=== PATIENT | female | born 2000 | race Caucasian/White ===

== ENCOUNTER 2025-01-17 16:48 | Emergency (ER) | payer OTHER, SELFPAY ==
[2025-01-17 17:46] VITALS: BP 139/75; PULSE 86; RESP 16; TEMP 37.1; O2SAT 98; BMI 36.6
[2025-01-17 18:13] LABS: Add Manual Diff / Slide Review NO; Basophils Absolute Auto 100 /uL (0-100); Basophils Percent Auto 1.1 % (0-2); Eosinophils Absolute Auto 200 /uL (0-450); Eosinophils Percent Auto 2.1 % (2-4); Hematocrit 39.5 % (36-46); Hemoglobin 13.6 g/dL (12.0-16.0); Lymphocytes Absolute Auto 2900 /uL (1100-4500); Lymphocytes Percent Auto 28.7 % (25-40); Mean Corpuscular HGB Conc 34.4 % (30-36); Mean Corpuscular Hemoglobin 30.9 PG (26-34); Mean Corpuscular Volume 89.7 fL (80-100); Monocytes Absolute Auto 600 /uL (0-900); Monocytes Percent Auto 5.9 % (3-14); Neutrophils Absolute Auto 6200 /uL (1500-7000); Neutrophils Percent Auto 62.2 % (50-75); Platelet Count 329 X10^3/uL (150-400); Red Cell Distribution Width 13.1 % (11.6-14.8)
[2025-01-17 18:17] LABS: RBC Urine None Seen (0-5/HPF); Urine Volume 10mL (spun); WBC Urine 0-1/HPF (0-5/HPF)
[2025-01-17 18:18] LABS: Bacteria Urine Occasional (0-1); Culture Indicated Urine Cult Not Indicated; Squamous Epithelial Cell Urine 1-5 /HPF (0-5/HPF)
[2025-01-17 18:22] LABS: Alanine Aminotransferase 25 IU/L (<35); Albumin 4.8 g/dL (3.5-5.0); Albumin Globulin Ratio 1.3 (1.0-2.8); Alkaline Phosphatase 37 U/L (38-126); Aspartate Aminotransferase 34 IU/L (14-36); BUN Creatinine Ratio 29.1 (6-22); Blood Urea Nitrogen 16 mg/dL (7-17); Calcium 9.3 mg/dL (8.4-10.2); Carbon Dioxide 23 mmol/L (22-32); Chloride 102 mmol/L (98-107); Estimated Glomerular Filt Rate > 60 mL/min (>60); Globulin 3.6 g/dL (1.7-4.1); Glucose 82 mg/dL (70-99); Lipase 67 U/L (23-300); Potassium 4.4 mmol/L (3.4-5.1); Sodium 137 mmol/L (137-145); Total Protein 8.4 g/dL (6.3-8.2)
[2025-01-17 18:26] LABS: HEMOLYSIS 89 (0-50)
[2025-01-17] MEDS: ACETAMINOPHEN 325 MG TABLET 650 MG PO (22:05)
[2025-01-17] MEDS: ONDANSETRON 4 MG/2 ML INJ IV (22:05)
[2025-01-17] MEDS: SODIUM CHLORIDE 0.9% 1,000 ML 1000 ML IV (22:06)
--- NOTE | 2025-01-17 22:11 | ED.ABDPAIN ---
HPI - Abdominal Pain General Chief Complaint: Abdominal Pain Stated Complaint: stomach pain dizzy Time Seen by Provider: 01/17/25 22:07 Source: patient Mode of arrival: Ambulatory History of Present Illness HPI narrative: 24-year-old female status post cholecystectomy January 2024, had ongoing abdominal pain, breath testing positive for H pylori May 2024, had course of antibiotics and antacids, intermittently having epigastric area discomfort, recently seen alternate ER that she can not name, had CT abdomen and pelvis that showed no acute changes. Currently taking famotidine, no other antacid regimen, as epigastric area discomfort intermittently. No black or red stools. No nausea or vomiting. No trauma injury. No cough chest pain shortness of breath. MD complaint: abdominal pain Related Data Previous Rx's ?Medication ?Instructions ?Recorded omeprazole 20 mg capsule,delayed 20 mg PO DAILY upper abdominal 01/17/25 release pain 30 days #30 caps Allergies Allergy/AdvReac Type Severity Reaction Status Date / Time No Known Drug Allergies Allergy Verified 01/17/25 17:46 Patient History Social History Smoking Status: Never smoker Smoking Status: Never smoker Exam Narrative Exam Narrative: GENERAL: Well-developed patient, in mild distress. HEAD: Atraumatic. Normocephalic. EYES: Pupils equal round and reactive. Extraocular motions intact. No scleral icterus. No injection or drainage. ENT: Nose without bleeding, purulent drainage. Throat without erythema, tonsillar hypertrophy or exudate. Airway patent. NECK: Trachea midline. Non tender CARDIOVASCULAR: Regular rate and rhythm without murmurs, gallops, or rubs. RESPIRATORY: Clear to auscultation. Breath sounds equal bilaterally. No wheezes, rales, or rhonchi. GASTROINTESTINAL: Abdomen soft, non-tender, nondistended. EXTREMITIES: No edema or joint tenderness. BACK: Nontender without deformity or crepitance. No flank tenderness. NEURO: AOx3. Motor functions grossly nonfocal SKIN: No rash or erythema of visible areas Initial Vital Signs Initial Vital Signs: Vital Signs Temperature 98.7 F 01/17/25 17:46 Pulse Rate 86 01/17/25 17:46 Respiratory Rate 16 01/17/25 17:46 Blood Pressure 139/75 01/17/25 17:46 Pulse Oximetry 98 01/17/25 17:46 Oxygen Delivery Method Room Air 01/17/25 17:46 Course Orders Ordered: ED Orders 01/17/25 17:52 EKG-12 Lead Stat 01/17/25 17:56 Complete Blood Count AUTO DIFF Stat Comprehensive Metabolic Panel Stat Lipase Stat Urine Microscopic Stat Discontinued Medications Acetaminophen (Acetaminophen 325 Mg Tablet) 650 mg PO NOW ONE Stop: 01/17/25 21:48 Last Admin: 01/17/25 22:05 Dose: 650 mg Documented By: FABIENNE Al Hydrox/Mg Hydrox/Simethicone (Mag Hydrox/Alum/Simeth 30 Ml Udc) 30 ml PO NOW ONE Stop: 01/17/25 22:09 Last Admin: 01/17/25 22:14 Dose: 30 ml Documented By: FABIENNE Sodium Chloride (Normal Saline 0.9%) 1,000 mls @ 1,000 mls/hr IV BOLUS ONE Stop: 01/17/25 22:46 Last Admin: 01/17/25 22:06 Dose: 1,000 mls/hr Documented By: FABIENNE Ondansetron HCl (Ondansetron 4 Mg/2 Ml Inj) 4 mg IV NOW PRN PRN Reason: Nausea And Vomiting Last Admin: 01/17/25 22:05 Dose: 4 mg Documented By: FABIENNE Ondansetron HCl (Ondansetron 4 Mg Odt) 4 mg PO NOW PRN PRN Reason: Nausea And Vomiting Pantoprazole Sodium (Pantoprazole 40 Mg Vial) 40 mg IV NOW ONE Stop: 01/17/25 22:09 Last Admin: 01/17/25 22:14 Dose: 40 mg Documented By: FABIENNE Vital Signs Vital signs: Vital Signs - 8 hr 01/17/25 23:12 Pulse Rate 68 Respiratory Rate 15 Blood Pressure 108/59 L Pulse Oximetry 100 Oxygen Delivery Method Room Air MDM - Abdominal Pain Lab Data Attestation: I reviewed the patient's lab results. Lab results narrative: White blood cell count 18369, hemoglobin 13.6, platelets adequate. Glucose 82. Normal renal function. Normal electrolytes and carbon dioxide. Liver functions and lipase normal. Urine negative. 01/17/25 17:56 01/17/25 17:56 Labs: Lab Results 01/17/25 Range/Units 17:56 WBC 10.0 (4.5-11.0) X10^3/uL RBC 4.40 (4.0-5.2) X10^6/uL Hgb 13.6 (12.0-16.0) g/dL Hct 39.5 (36-46) % MCV 89.7 (80-100) fL MCH 30.9 (26-34) PG MCHC 34.4 (30-36) % RDW 13.1 (11.6-14.8) % Plt Count 329 (150-400) X10^3/uL Neut % (Auto) 62.2 (50-75) % Lymph % (Auto) 28.7 (25-40) % [place] % (Auto) 5.9 (3-14) % Eos % (Auto) 2.1 (2-4) % Baso % (Auto) 1.1 (0-2) % Neut # (Auto) 6200 (9151-4209) /uL Lymph # (Auto) 2900 (9588-9217) /uL [place] # (Auto) 600 (0-900) /uL Eos # (Auto) 200 (0-450) /uL Baso # (Auto) 100 (0-100) /uL Sodium 137 (137-145) mmol/L Potassium 4.4 (3.4-5.1) mmol/L Chloride 102 (98-107) mmol/L Carbon Dioxide 23 (22-32) mmol/L BUN 16 (7-17) mg/dL Creatinine 0.55 (0.52-1.04) mg/dL Estimated GFR > 60 (>60) mL/min BUN/Creatinine Ratio 29.1 H (6-22) Glucose 82 (70-99) mg/dL Calcium 9.3 (8.4-10.2) mg/dL Total Bilirubin 1.0 (0.2-1.3) mg/dL AST 34 (14-36) IU/L ALT 25 (<35) IU/L Alkaline Phosphatase 37 L (38-126) U/L Total Protein 8.4 H (6.3-8.2) g/dL Albumin 4.8 (3.5-5.0) g/dL Globulin 3.6 (1.7-4.1) g/dL Albumin/Globulin Ratio 1.3 (1.0-2.8) Lipase 67 (23-300) U/L Urine RBC None seen (0-5/HPF) Urine WBC 0-1/hpf (0-5/HPF) Ur Squamous Epith Cells 1-5 /hpf (0-5/HPF) Urine Bacteria Occasional (0-1) (None) Ur Culture Indicated? Cult not indicated Vol Urine Centrifuged 10ml (spun) Point of care testing: Point of Care Testing Test Results Negative Urine Dip Bedside Urine Glucose Negative Bedside Urine Bilirubin - Negative Bedside Urine Ketone ++ 40 Urine Specific [place] 1.015 Bedside Urine Occult Blood - Negative Bedside Urine pH 6 Bedside Urine Protein - Negative Bedside Urine Urobilinogen - Negative Bedside Urine Nitrite - Negative Bedside Urine Leukocytes - Negative Esterase MDM Narrative Medical decision making narrative: 24-year-old female with ongoing upper abdominal pain, status post cholecystectomy last year, treatment for H pylori based on breath testing, no prior EGD, currently taking famotidine, still having intermittent and more recent epigastric discomfort. Afebrile, sirs screen negative. No abdominal tenderness. Screening labs sent are pending. White blood cell count not elevated, hemoglobin normal, liver functions unremarkable, lipase normal. UA negative. Urine test negative. Oral Maalox liquid antacid, IV Protonix. Consider change of outpatient famotidine to omeprazole. Consider upper endoscopy, we will need to discuss with her primary care for her rider for referral. Given contact information for local general surgery if endoscopy desires locally. Likely will need referral from PCP. Return precautions discussed. Discharge Plan Departure Patient Disposition: Home Clinical Impression: Epigastric abdominal pain Activity Restrictions/Additional Instructions: History of prior gallbladder removal surgery last year, subsequent upper abdominal pain, breath test H pylori positive, course of antacids and antibiotics recalled, now having intermittent upper abdominal discomfort. Reported CT scan at some other emergency department reported, some kind of hernia recalled. No tenderness on examination tonight. Screening labs normal including white blood cell count, hemoglobin, liver tests, lipase test from your pancreas. Urine test negative. Urinalysis negative. You had been taking famotidine antacid. We gave IV Protonix antacid here in the emergency department. Consider taking omeprazole antacid daily. Consider upper endoscopy though you might need referral from your primary care provider. Contact information given for local surgeons who do upper endoscopies in our area. Recheck with your regular doctor to facilitate outpatient referrals. Return earlier to this/nearest emergency department for any change worsening symptoms or any concerns prior. Prescriptions: New omeprazole 20 mg capsule,delayed release(DR/EC) 20 mg PO DAILY 30 Days Qty: 30 0RF Referrals: Ollie Thorne MD [Physician, General Surgery] Stand Alone Forms: Patient Portal/API
[2025-01-17] MEDS: MAG HYDROX/ALUM/SIMETH 30 ML UDC PO (22:14)
[2025-01-17] MEDS: PANTOPRAZOLE 40 MG VIAL IV (22:14)
[2025-01-17 23:12] VITALS: BP 108/59; PULSE 68; RESP 15; O2SAT 100
== END 2025-01-17 23:13 | disposition home or self-care (01) ==
PROVIDERS: Family Medicine; Emergency Provider Emergency Medicine
DX: R10.13 Epigastric pain (principal); R42 Dizziness and giddiness
CPT/HCPCS: 36415; 80053; 81003; 81015; 81025; 83690; 85025; 96374; 96375; 99284; J2405; J2470

== ENCOUNTER 2025-06-07 14:02 | Emergency (ER) | payer OTHER, SELFPAY ==
[2025-06-07] VITALS (11 sets, daily range): BP systolic 116–165; BP diastolic 67–90; PULSE 86–106; RESP 12–22; TEMP 36.6; O2SAT 95–98; BMI 34.2
--- NOTE | 2025-06-07 14:13 | DI.RAD.S_ITS ---
PROCEDURE: XR CHEST 1V INDICATIONS: Chest Pain TECHNIQUE: One view of the chest was acquired. COMPARISON: None. FINDINGS: Surgical changes and devices: None. Lungs and pleura: Lungs are clear. No pleural effusions or pneumothorax. Mediastinum: Mediastinal contours appear normal. Heart size is normal. Bones and chest wall: No suspicious bony lesions. Overlying soft tissues appear unremarkable. IMPRESSION: No acute cardiopulmonary abnormality is seen. Dictated by: Joaquín Hall M.D. on 06/07/2025 at 14:49 Approved by: Joaquín Hall M.D. on 06/07/2025 at 14:49
--- NOTE | 2025-06-07 14:15 | EKG_ITS ---
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
[2025-06-07 14:36] LABS: Add Manual Diff / Slide Review NO; Hematocrit 41.6 % (36-46); Hemoglobin 14.1 g/dL (12.0-16.0); Lymphocytes Absolute Auto 2500 /uL (1100-4500); Mean Corpuscular HGB Conc 33.9 % (30-36); Mean Corpuscular Hemoglobin 30.3 PG (26-34); Mean Corpuscular Volume 89.4 fL (80-100); Platelet Count 333 X10^3/uL (150-400)
[2025-06-07 14:54] LABS: INR 1.2 (0.9-1.3); Prothrombin Time 13.3 SECONDS (9.4-12.5)
[2025-06-07 14:56] LABS: PTT Partial Thromboplastin Tim 30 SECONDS (25.1-36.5)
[2025-06-07 14:57] LABS: Alanine Aminotransferase 59 IU/L (<35); Albumin 5.0 g/dL (3.5-5.0); Albumin Globulin Ratio 1.5 (1.0-2.8); Alkaline Phosphatase 52 U/L (38-126); Blood Urea Nitrogen 13 mg/dL (7-17); Calcium 9.1 mg/dL (8.4-10.2); Carbon Dioxide 25 mmol/L (22-32); Chloride 101 mmol/L (98-107); Creatine Kinase 70 U/L (30-135); Estimated Glomerular Filt Rate > 60 mL/min (>60); Globulin 3.4 g/dL (1.7-4.1); Glucose 108 mg/dL (70-99); HEMOLYSIS < 15 (0-50); Lipase 108 U/L (23-300); Magnesium 2.2 mg/dL (1.6-2.3); Potassium 3.5 mmol/L (3.4-5.1); Sodium 138 mmol/L (137-145); Total Protein 8.4 g/dL (6.3-8.2)
[2025-06-07 15:09] LABS: NT-proBNP (BNP-Adult 18+) < 20 pg/mL (<125); Troponin I < 0.012 ng/mL (0.01-0.034)
--- NOTE | 2025-06-07 16:28 | DI.CT.S_ITS ---
PROCEDURE: CT HEAD/BRAIN WO CON INDICATIONS: Headache on Eliquis TECHNIQUE: Noncontrast 4.5 mm thick angled axial sections acquired from the foramen magnum to the vertex, with coronal and sagittal reformats. For radiation dose reduction, the following was used: automated exposure control, adjustment of mA and/or kV according to patient size. COMPARISON: [facility], CR, XR CHEST 1V, 06/07/2025, 14:13. FINDINGS: Image quality: Diagnostic. CSF spaces: Basal cisterns are patent. No extra-axial fluid collections. Ventricles are normal in size and shape. Brain: No midline shift. No intracranial mass effect or hemorrhage. Paez- white matter interface is normal. Skull and face: Calvarium and visualized facial bones are intact, without suspicious lesions. Sinuses: There is a mucous retention cyst within the left maxillary sinus. Visualized sinuses and mastoids are otherwise relatively clear. IMPRESSION: No acute intracranial hemorrhage is seen. No acute intracranial pathology. Dictated by: Scotty Ryan M.D. on 06/07/2025 at 16:38 Approved by: Scotty Ryan M.D. on 06/07/2025 at 16:39
[2025-06-07] MEDS: ACETAMINOPHEN 325 MG TABLET 975 MG PO (16:32)
--- NOTE | 2025-06-07 17:23 | ED_ITS ---
HPI - Chest Pain General Chief Complaint: Chest Pain Stated Complaint: Last wk blood clot; this am chest tight Time Seen by Provider: 06/07/25 16:27 Source: patient Mode of arrival: Ambulatory History of Present Illness HPI narrative: Patient is a 25-year-old female history of factor 5, with newly diagnosed pulmonary embolism started on Eliquis on May 28 presenting today with ongoing chest pain and headache. She reports ongoing shortness of breath. She has been taking her inhalers has not really worked. She was on antibiotics also has not work. She has no fever. She is still somewhat short of breath. She reports that pulmonary embolism is not that big. She has been also having some ongoing headache she had some numbness in her face which is new. No other significant weakness. Related Data Allergies Allergy/AdvReac Type Severity Reaction Status Date / Time No Known Drug Allergies Allergy Verified 06/07/25 14:08 Exam Initial Vital Signs Initial Vital Signs: Vital Signs Temperature 98 F 06/07/25 14:08 Pulse Rate 106 H 06/07/25 14:08 Respiratory Rate 18 06/07/25 14:08 Blood Pressure 165/90 H 06/07/25 14:08 Pulse Oximetry 98 06/07/25 14:08 Oxygen Delivery Method Room Air 06/07/25 14:08 GENERAL: Patient is a well-appearing 25-year-old and in no acute distress. HEENT: Head atraumatic,EOMI, pupils reactive, face symmetric, moist mucous membranes CARDIOVASCULAR: Regular rate and rhythm without murmurs, rubs or gallops. RESPIRATORY: Breath sounds equal bilaterally, no wheezes rales or rhonchi. ABDOMEN: Soft, nontender. Normoactive bowel sounds all 4 quadrants. No guarding or rebound. EXTREMITIES: Normal range of motion, no clubbing or edema. Neurovascularly intact NEUROLOGICAL: Alert and oriented x4.Normal gait and speech. Cranial nerves II through XII grossly intact. SKIN: Warm, dry, no laceration, no petechiae, no rashes or lesions. Course Orders Ordered: ED Orders 06/07/25 14:13 XR chest 1V Stat EKG-12 Lead Stat 06/07/25 14:20 Complete Blood Count AUTO DIFF Stat Comprehensive Metabolic Panel Stat Lipase Stat Magnesium Stat NT-proBNP (BNP-Adult 18+) Stat PTT Partial Thromboplastin Christopher Stat Prothrombin Time INR Stat Troponin & CK Cardiac Panel Stat 06/07/25 16:28 CT head/brain wo con Stat Discontinued Medications Acetaminophen (Acetaminophen 325 Mg Tablet) 975 mg PO NOW ONE Stop: 06/07/25 16:29 Last Admin: 06/07/25 16:32 Dose: 975 mg Documented By: ATIYA Vital Signs Vital signs: Vital Signs - 8 hr 06/07/25 14:08 06/07/25 14:13 06/07/25 14:13 Temperature 98 F Pulse Rate 106 H 95 H Respiratory Rate 18 Blood Pressure 165/90 H 133/86 Pulse Oximetry 98 97 Oxygen Delivery Method Room Air 06/07/25 14:25 06/07/25 14:25 06/07/25 14:30 Temperature Pulse Rate 95 H Respiratory Rate Blood Pressure 132/79 129/77 Pulse Oximetry 98 Oxygen Delivery Method 06/07/25 14:30 06/07/25 15:00 06/07/25 15:00 Temperature Pulse Rate 93 H 90 Respiratory Rate 20 17 Blood Pressure 130/79 Pulse Oximetry 97 96 Oxygen Delivery Method 06/07/25 15:30 06/07/25 15:30 06/07/25 16:00 Temperature Pulse Rate 93 H 90 Respiratory Rate 22 22 Blood Pressure 138/71 Pulse Oximetry 96 96 Oxygen Delivery Method 06/07/25 16:00 06/07/25 16:30 06/07/25 16:30 Temperature Pulse Rate 92 H Respiratory Rate 17 Blood Pressure 121/77 128/76 Pulse Oximetry 95 Oxygen Delivery Method 06/07/25 17:00 06/07/25 17:00 06/07/25 17:30 Temperature Pulse Rate 86 95 H Respiratory Rate 12 Blood Pressure 116/67 Pulse Oximetry 96 96 Oxygen Delivery Method Room Air 06/07/25 18:00 Temperature Pulse Rate 99 H Respiratory Rate Blood Pressure Pulse Oximetry 95 Oxygen Delivery Method MDM - Chest Pain Lab Data 06/07/25 14:20 06/07/25 14:20 Labs: Lab Results 06/07/25 Range/Units 14:20 WBC 13.3 H (4.5-11.0) X10^3/uL RBC 4.65 (4.0-5.2) X10^6/uL Hgb 14.1 (12.0-16.0) g/dL Hct 41.6 (36-46) % MCV 89.4 (80-100) fL MCH 30.3 (26-34) PG MCHC 33.9 (30-36) % RDW 13.9 (11.6-14.8) % Plt Count 333 (150-400) X10^3/uL Neut % (Auto) 75.3 H (50-75) % Lymph % (Auto) 18.8 L (25-40) % [place] % (Auto) 5.2 (3-14) % Eos % (Auto) 0.3 L (2-4) % Baso % (Auto) 0.4 (0-2) % Neut # (Auto) 22163 H (5856-7289) /uL Lymph # (Auto) 2500 (0183-1631) /uL [place] # (Auto) 700 (0-900) /uL Eos # (Auto) 0 (0-450) /uL Baso # (Auto) 100 (0-100) /uL PT 13.3 H (9.4-12.5) SECONDS INR 1.2 (0.9-1.3) APTT 30 (25.1-36.5) SECONDS Sodium 138 (137-145) mmol/L Potassium 3.5 (3.4-5.1) mmol/L Chloride 101 (98-107) mmol/L Carbon Dioxide 25 (22-32) mmol/L BUN 13 (7-17) mg/dL Creatinine 0.58 (0.52-1.04) mg/dL Estimated GFR > 60 (>60) mL/min BUN/Creatinine Ratio 22.4 H (6-22) Glucose 108 H (70-99) mg/dL Calcium 9.1 (8.4-10.2) mg/dL Magnesium 2.2 (1.6-2.3) mg/dL Total Bilirubin 0.6 (0.2-1.3) mg/dL AST 32 (14-36) IU/L ALT 59 H (<35) IU/L Alkaline Phosphatase 52 (38-126) U/L Total Creatine Kinase 70 (30-135) U/L Troponin I < 0.012 (0.01-0.034) ng/mL NT-Pro-B Natriuret Pep < 20 (<125) pg/mL Total Protein 8.4 H (6.3-8.2) g/dL Albumin 5.0 (3.5-5.0) g/dL Globulin 3.4 (1.7-4.1) g/dL Albumin/Globulin Ratio 1.5 (1.0-2.8) Lipase 108 (23-300) U/L Imaging Data CT scan - head: Radiologist's Impression: PROCEDURE: CT HEAD/BRAIN WO CON INDICATIONS: Headache on Eliquis TECHNIQUE: Noncontrast 4.5 mm thick angled axial sections acquired from the foramen magnum to the vertex, with coronal and sagittal reformats. For radiation dose reduction, the following was used: automated exposure control, adjustment of mA and/or kV according to patient size. COMPARISON: [facility], , XR CHEST 1V, 06/07/2025, 14:13. FINDINGS: Image quality: Diagnostic. CSF spaces: Basal cisterns are patent. No extra-axial fluid collections. Ventricles are normal in size and shape. Brain: No midline shift. No intracranial mass effect or hemorrhage. Paez- white matter interface is normal. Skull and face: Calvarium and visualized facial bones are intact, without suspicious lesions. Sinuses: There is a mucous retention cyst within the left maxillary sinus. Visualized sinuses and mastoids are otherwise relatively clear. IMPRESSION: No acute intracranial hemorrhage is seen. No acute intracranial pathology. Dictated by: Scotty Ryan M.D. on 06/07/2025 at 16:38 Chest x-ray: Radiologist's Impression: PROCEDURE: XR CHEST 1V INDICATIONS: Chest Pain TECHNIQUE: One view of the chest was acquired. COMPARISON: None. FINDINGS: Surgical changes and devices: None. Lungs and pleura: Lungs are clear. No pleural effusions or pneumothorax. Mediastinum: Mediastinal contours appear normal. Heart size is normal. Bones and chest wall: No suspicious bony lesions. Overlying soft tissues appear unremarkable. IMPRESSION: No acute cardiopulmonary abnormality is seen. Dictated by: Joaquín Hall M.D. on 06/07/2025 at 14:49 ECG Data Attestation: I personally reviewed and interpreted this ECG as follows: Interpretation: Sinus rhythm rate 80 OR interval 138 QRS [address] changes no depressions no elevation you mild T-wave inversion noted in lead 3 only no Q-waves MDM Narrative Medical decision making narrative: MDM CC: Headache chest pain] Complicating co-morbidities: Factor 5 Leiden on Eliquis recent PE Data collected from: Patient Medical records reviewed: None Differential considered: Intracranial hemorrhage pulmonary embolism pneumonia Exam documented above, pertinent findings include: Patient is alert well- appearing 25-year-old female breath sounds are clear 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 Pertinent findings: CBC shows mild leukocytosis of 13.3 no anemia CMP no electrolytes no SABA glucose 108 Bilirubin liver enzymes within normal limits Independently reviewed EKG as above Sinus rhythm no ischemia Imaging studies independently reviewed: Chest x-ray no acute cardiopulmonary process Head CT no intracranial hemorrhage Consultations: [ ] Treatments: Tylenol Re-evaluations: [ ] Discussion: Patient 25-year-old female with newly diagnosed pulmonary embolism. She reports that the pulmonary embolism was quite small 0 we unfortunately did not receive records from [facility] to review. She is not hypoxic mildly tachycardic. Chest x-ray does not show any cardiopulmonary process. Blood work is overall reassuring. Head CT was done due to new anticoagulation and change in headache behavior. Head CT is negative. Discussion with her I think that her chest pain and shortness of breath is likely from her pulmonary embolism which will take time. At this time I do not see any need to repeat a CT chest which she agrees. She will continue her medications and follow up as needed. Discharge Plan Departure Patient Disposition: Home Clinical Impression: Atypical chest pain, Headache Activity Restrictions/Additional Instructions: *You have been diagnosed with atypical chest pain headache *What to do: At this time I think that your chest is hurting due to the blood clot in your lungs. This can take time to resolve. You do not have any evidence of pneumonia no need for antibiotics *Continue to take medications as directed Continue Eliquis *Follow up with your primary care provider in 2-3 days or call [phone] *Return to ER if you should have increasing chest pain shortness of breath weakness headache nausea vomiting or any new, worsening or concerning symptoms Stand Alone Forms: Patient Portal/API
== END 2025-06-07 18:09 | disposition home or self-care (01) ==
PROVIDERS: Emergency Provider Emergency Medicine
DX: R07.89 Other chest pain (principal); R51.9 Headache, unspecified; I26.99 Other pulmonary embolism without acute cor pulmonale; R06.02 Shortness of breath; R00.0 Tachycardia, unspecified; Z79.01 Long term (current) use of anticoagulants
CPT/HCPCS: 36415; 70450; 71045; 80053; 82550; 83690; 83735; 83880; 84484; 85025; 85610; 85730; 93005; 93010; 99284